=== PATIENT | male | born 1985 | race Caucasian/White ===

== ENCOUNTER 2020-02-26 09:36 | Emergency (ER) | payer OTHER ==
[~2020-02-26] VITALS: Ht 177.8 cm; Wt 90.7 kg
[~2020-02-26 09:36] MED LIST: CODACE30 PO; PENVK250 PO; RXCODACET PO; RXPENVK250 PO
== END 2020-02-26 10:25 | disposition home or self-care (01) ==
LOC: ER 09:36
DX: S40.812A Abrasion of left upper arm, initial encounter (principal); S40.811A Abrasion of right upper arm, initial encounter; S80.812A Abrasion, left lower leg, initial encounter; S80.811A Abrasion, right lower leg, initial encounter; F17.210 Nicotine dependence, cigarettes, uncomplicated; Z23 Encounter for immunization; Z02.89 Encounter for other administrative examinations; M25.512 Pain in left shoulder; W45.8XXA Other foreign body or object entering through skin, initial encounter
CPT/HCPCS: 73030; 90471; 90714; 99283-25

== ENCOUNTER 2023-03-08 16:38 | Emergency (ER) | payer OTHER ==
[~2023-03-08] VITALS: Ht 175.3 cm; Wt 93.0 kg
[2023-03-08 16:45] VITALS: BP 152/107
== END 2023-03-08 16:53 | disposition home or self-care (01) ==
LOC: ER 16:38
DX: S80.11XA Contusion of right lower leg, initial encounter (principal); F17.210 Nicotine dependence, cigarettes, uncomplicated; W31.2XXA Contact with powered woodworking and forming machines, initial encounter; Z79.899 Other long term (current) drug therapy; Z79.2 Long term (current) use of antibiotics
CPT/HCPCS: 99282